=== PATIENT | female | born 2000 | race Caucasian/White ===

== ENCOUNTER 2020-05-26 17:26 | Emergency (ER) | payer MEDICAID ==
[~2020-05-26] VITALS: Ht 162.6 cm; Wt 77.1 kg
[2020-05-26 18:26] LABS: BILIRUBIN,URINE NEGATIVE (NEGATIVE); BLOOD, URINE 3+ (NEGATIVE); COLOR,URINE YELLOW (YELLOW); GLUCOSE,URINE NEGATIVE (NEGATIVE); KETONES,URINE NEGATIVE (NEGATIVE); LEUKOCYTE ESTERASE ,URINE NEGATIVE (NEGATIVE); NITRITE, URINE NEGATIVE (NEGATIVE); PROTEIN URINE TRACE (NEGATIVE); UROBILINOGEN,URINE 0.2 (0.2-1.0)
[2020-05-26 18:28] LABS: CLARITY/URINE SLIGHTLY HAZY (CLEAR)
[2020-05-26 18:36] LABS: BACTERIA,URINE FEW /HPF (None Seen); MUCUS,URINE 2+ /LPF (None Seen); WBC,URINE 0-3 /HPF (0-3)
[2020-05-26] MEDS ORDERED: IBUP-1971 PO (19:05)
[2020-05-26] MEDS ORDERED: ONDA8TAB60 PO (19:05)
[2020-05-26] MEDS ORDERED: LOPE2CAP PO (19:05)
[2020-05-26 19:14] VITALS: BP_SYST 129
== END 2020-05-26 19:13 | disposition home or self-care (01) ==
LOC: SED 17:26
DX: R10.13 Epigastric pain (principal); R11.2 Nausea with vomiting, unspecified; R19.7 Diarrhea, unspecified
CPT/HCPCS: 81000-TC; 81025; 99283